=== PATIENT | male | born 1940 | race Caucasian/White ===

== ENCOUNTER 2017-11-23 16:19 | Inpatient (IN) | payer OTHER ==
[~2017-11-23] VITALS: Ht 182.9 cm; Wt 83.5 kg
--- NOTE | 2017-11-23 16:37 | NUR ---
BBRA 78 FROM HOME FOR SOB LOW 90'S ON ROOM AIR HX CHF. 100% ON 5L . PLACED ON MONITOR. AWAITING MD ORDER
[2017-11-23] MEDS ORDERED: FUROSEMIDE 40 MG/4 ML VIAL ONE ×2 (16:39→18:41)
[2017-11-23 16:51] LABS: BASOPHILS # (AUTO) 0.4 /CMM (0.0-0.2); HEMOGLOBIN 10.4 g/dL (13.5-17.5); NEUTROPHILS % (AUTO) 89.5 % (43.0-81.0); RED BLOOD CELL COUNT(AUTO) 3.23 MIL/uL (4.5-6.0)
[2017-11-23] MEDS ORDERED: BECL8.7A6 IH (16:59)
[2017-11-23] MEDS ORDERED: DOCU-141 PO (16:59)
[2017-11-23] MEDS ORDERED: HYDR-552 PO (16:59)
[2017-11-23] MEDS ORDERED: LOSA50TA21 PO (16:59)
[2017-11-23] MEDS ORDERED: ASPI-992 PO (16:59)
[2017-11-23] MEDS ORDERED: ATOR10TA PO (16:59)
[2017-11-23] MEDS ORDERED: ALBU18HF2 IH (16:59)
[2017-11-23] MEDS ORDERED: MULT-24 PO (16:59)
[2017-11-23] MEDS ORDERED: CYAN10009 PO (16:59)
[2017-11-23] MEDS ORDERED: ESCI10TA PO (16:59)
[2017-11-23] MEDS ORDERED: ALLO300T2 PO (16:59)
[2017-11-23] MEDS ORDERED: BUPR-51 PO (16:59)
[2017-11-23] MEDS ORDERED: NITR0.4T48 SL (16:59)
[2017-11-23] MEDS ORDERED: ACAM333T8 PO (16:59)
[2017-11-23] MEDS ORDERED: METO25TA20 PO (16:59)
[2017-11-23] MEDS ORDERED: SENN-167 PO (16:59)
[2017-11-23] MEDS ORDERED: CHOL100044 PO (16:59)
[2017-11-23] MEDS ORDERED: FOLI1TAB16 PO (16:59)
[2017-11-23] MEDS ORDERED: MELA3TAB PO (16:59)
[2017-11-23] MEDS ORDERED: MAGN400T26 PO (16:59)
[2017-11-23] MEDS ORDERED: THIA100T13 PO (16:59)
[2017-11-23] MEDS ORDERED: FUROSEMIDE 40 MG/4 ML VIAL IV ONE ×2 (17:00→19:00)
[2017-11-23 17:03] LABS: BASOPHILS % (AUTO) 2.8 % (0.0-2.0); HEMATOCRIT 31 % (39-51); LYMPHOCYTES # (AUTO) 0.6 /CMM (0.8-4.8); MEAN CORPUSCULAR HGB CONC 34 g/dl (31.0-36.0); MEAN CORPUSCULAR VOLUME 96 fL (80-96); MONOCYTES # (AUTO) 0.6 /CMM (0.1-1.30); MONOCYTES % (AUTO) 3.7 % (2.0-12.0); NEUTROPHILS # (AUTO) 14.2 /CMM (1.8-8.9); PLATELET COUNT (AUTO) 459 /CMM (150-450); RDW COEFFICIENT OF VARIATION 13.2 (11.5-15.0); WHITE BLOOD COUNT (AUTO) 15.9 K/uL (4.3-11.0)
[2017-11-23 17:04] LABS: CALCIUM, SERUM 10.2 mg/dL (8.5-10.1); CARBON DIOXIDE 27 mmol/L (21-32); CHLORIDE 100 mmol/L (98-107); CREATININE 1.5 mg/dL (0.6-1.3); GLUCOSE 133 mg/dL (74-106); POTASSIUM 4.1 mmol/L (3.5-5.1); SODIUM SERUM 134 mmol/L (136-145); UREA NITROGEN, BLOOD 46 mg/dL (7-18)
[2017-11-23 17:10] LABS: INR 1.14 (0.85-1.15)
[2017-11-23 17:11] LABS: TROPONIN I 0.029 ng/mL (0.00-0.056)
[2017-11-23 17:16] LABS: ALANINE AMINOTRANSFERASE 30 U/L (12-78); ALBUMIN 2.1 g/dL (3.4-5.0); ALKALINE PHOSPHATASE 162 U/L (46-116); ASPARTATE AMINOTRANSFERASE 22 U/L (15-37); B-TYPE NATRIURETIC PEPTIDE 6682 PG/ML (0-125); BILIRUBIN,DIRECT 0.4 mg/dL (0.0-0.2); BILIRUBIN,TOTAL 0.7 mg/dL (0.2-1.0)
--- NOTE | 2017-11-23 17:45 | NUR ---
CALLED [facility] SPOKE WITH BERNA, EXPECTING A CALL BACK FROM A FRAZEE
--- NOTE | 2017-11-23 18:27 | NUR ---
UNABLE TO OBTAIN URINE AT THIS TIME MD JAVED
--- NOTE | 2017-11-23 18:33 | NUR ---
[facility] CALLED BACK WITH [place] INFO PATIENT WILL BE TRANFERED TO [facility] ER ACCEPTING IS DR ADITYA HERNÁNDEZ ETA [id number].
--- NOTE | 2017-11-23 18:57 | NUR ---
GAVE REPORT TO AURELIO TO RODY MARINO
--- NOTE | 2017-11-23 19:08 | NUR ---
GAVE REPORT TO [facility] FOR HEATHER
--- NOTE | 2017-11-23 19:09 | NUR ---
RECEIVED REPORT FROM ADAMARIS DOWNING FOR HEATHER.
--- NOTE | 2017-11-23 19:15 | NUR ---
PT NOTED TO BE IN MILD RESPIRATORY DISTRESS. PT ON SIMPLE MASK 5L/M WITH SPO2 100%, RR 26. MD MADE AWARE. WILL CONTINUE TO MONITOR PT.
[2017-11-23] MEDS ORDERED: NALOXONE PREFILLED SYRINGE 2 MG/2 ML SYRINGE ONE (19:23)
--- NOTE | 2017-11-23 19:25 | NUR ---
REPORT GIVEN TO TRANSPORT TEAM BY ADAMARIS DOWNING.
--- NOTE | 2017-11-23 19:27 | NUR ---
PT MEDICATED WITH NARCAN IV PER MD'S VERBAL ORDERS. WILL CONTINUE TO MONITOR PT. TRANSPORT TEAM BEDSIDE TO TRANSFER PT TO [facility].
[2017-11-23] MEDS ORDERED: NALOXONE HCL 0.4 MG/ML AMPUL IV ONE (19:30)
--- NOTE | 2017-11-23 19:45 | NUR ---
TRANSPORT TEAM ON STANDBY UNTIL FURTHER NOTICE PER MD MICHAUD. CALLING MARINO FOR DR TO WILL CONTINUE TO MONITOR PT.
--- NOTE | 2017-11-23 19:50 | NUR ---
PT TO CT
--- NOTE | 2017-11-23 20:02 | NUR ---
RT CALLED FOR BIPAP
--- NOTE | 2017-11-23 20:03 | NUR ---
PT BACK FROM CT
[2017-11-23 20:19] VITALS: BP 125/71
--- NOTE | 2017-11-23 20:36 | NUR ---
BIPAP SETTINGS 20/5 18/100%
--- NOTE | 2017-11-23 20:40 | NUR ---
REPORT GIVEN TO MILL WORKERADAMARIS MUÑOZ FOR HEATHER.
--- NOTE | 2017-11-23 20:50 | NUR ---
RT BEDSIDE FOR ABG
--- NOTE | 2017-11-23 21:05 | NUR ---
RN ADMITTING NOTE RECEIVED PT FROM ER, REPORT GIVEN BY ER NURSE. 76 YR OLD MALE WITH AMS, CC; SOB LOW 90'S, AMS. PLACED ON BIPAP 20/5 18, 35%, NO SIGN OF FACIAL GRIMANCING, ABLE TO RESPOND AFTER LOUD CALL OUT OF HIS NAME, NON VERBAL, CALM, VS WNR, RESPIRATORY DOS SANTOS WITH AUDIBLE CRACKLES. WITH RH # 20 G, SL, SKIN ISSUES NOTED PHOTOS TAKEN, PT WAS FOR TRANSFER TO [facility] PER ER NURSE DOCTOR TO DOCTOR CONVERSATION, BUT PT UNSTABLE, SO DECIDED TO KEEP OVER NIGHT FOR OBSERVATION AND F/U IN AM. MARYJANE ADMITTING MEMBERSHIP SECRETARY, ALL ORDERS INPUT PER PROTOCOL. SAFETY MEASURES UNDER TAKEN, WILL CONT TO MONITOR.
[2017-11-23 21:17] VITALS: BP 122/90
[2017-11-23 21:25] LABS: ABG BASE EXCESS -0.5 mmol/L; ABG OXYGEN SATURATION 99.4 % (92.0-98.5); ABG PCO2 54.4 mmHg (35.0-45.0); ABG PH 7.304 (7.350-7.450); ABG PO2 458.8 mmHg (75.0-100.0); AaDO2 199.8 mmHg; COHb 0.1 % (0.5-1.5); MetHb 0.5 % (0.0-1.5); O2Hb 98.8 % (94.0-97.0); PEEP,BG 5 cm H2O; SITE, ABG Right Radial; VENT MODE, BG bipap
[2017-11-23 21:30] VITALS: BP 129/90
[2017-11-23 22:01] VITALS: BP 139/31
--- NOTE | 2017-11-23 22:30 | NUR ---
PT SEEN BY MARYJANE TRIM AND BURR OPERATOR WITH ORDERS FOR ALBUTEROL, ATROVENT, MUCOMIST, NASAL OR ORAL SUCTION D/T CONGESTION/ CRACKLES AND 1 HR AFTER ABG.
[2017-11-23 23:20] VITALS: BP 104/60
[2017-11-23] MEDS: ALBUTEROL FS 2.5 MG/0.5 ML VIAL.NEB NEB SCH (23:20)
[2017-11-23] MEDS: IPRATROPIUM NEB FS 0.5 MG/2.5 ML AMPUL.NEB NEB SCH (23:20)
[2017-11-23] MEDS: ACETYLCYSTEINE 10% SOLN 400 MG/4 ML VIAL NEB SCH (23:20)
[2017-11-23] MEDS ORDERED: MAG HYDROX/AL HYDROX/SIMETH 30 ML UDC PO PRN (23:30)
[2017-11-23] MEDS ORDERED: Z GUARD REMEDY 2 OZ OINT TP PRN (23:30)
[2017-11-23] MEDS ORDERED: ONDANSETRON HCL/PF 4 MG/2 ML VIAL IVP PRN (23:30)
[2017-11-23] MEDS ORDERED: ZOLPIDEM TARTRATE 5 MG TABLET PO PRN (23:30)
[2017-11-23] MEDS ORDERED: MAGNESIUM HYDROXIDE 30 ML UDC PO PRN (23:30)
[2017-11-23] MEDS ORDERED: ACETAMINOPHEN 325 MG TABLET PO PRN (23:30)
[2017-11-23] MEDS ORDERED: HYDROCODONE/APAP 5/325MG 1 EACH TABLET PO PRN (23:30)
[2017-11-24] VITALS (41 sets, daily range): BP systolic 94–131; BP diastolic 29–84
[2017-11-24] MEDS: HEPARIN SODIUM, PORCINE 5000 UNITS/1 ML VIAL SQ SCH ×2 (00:08→09:26)
[2017-11-24 01:29] LABS: ABG BASE EXCESS 1.7 mmol/L; ABG PCO2 43.2 mmHg (35.0-45.0); ABG PH 7.408 (7.350-7.450); ABG PO2 93.4 mmHg (75.0-100.0); AaDO2 105.9 mmHg; COHb 0.3 % (0.5-1.5); MetHb 0.3 % (0.0-1.5); O2Hb 96.4 % (94.0-97.0); SITE, ABG Right Radial; VENT MODE, BG BIPAP 22/5 RR18 35%
[2017-11-24] MEDS ORDERED: CEFTRIAXONE 1 G in IV D5W 50 ML IV SCH (03:00)
[2017-11-24] MEDS ORDERED: IV NS 0.9% 1,000 ML IV PRN (03:00)
[2017-11-24 03:18] LABS: BASOPHILS % (AUTO) 0.1 % (0.0-2.0); HEMATOCRIT 29 % (39-51); HEMOGLOBIN 9.5 g/dL (13.5-17.5); LYMPHOCYTES # (AUTO) 0.7 /CMM (0.8-4.8); LYMPHOCYTES % (AUTO) 6.3 % (20.0-44.0); MEAN CORPUSCULAR HGB CONC 33 g/dl (31.0-36.0); MEAN CORPUSCULAR VOLUME 96 fL (80-96); MONOCYTES # (AUTO) 0.4 /CMM (0.1-1.30); MONOCYTES % (AUTO) 3.8 % (2.0-12.0); NEUTROPHILS # (AUTO) 10.2 /CMM (1.8-8.9); NEUTROPHILS % (AUTO) 89.8 % (43.0-81.0); PLATELET COUNT (AUTO) 372 /CMM (150-450); RED BLOOD CELL COUNT(AUTO) 2.96 MIL/uL (4.5-6.0); WHITE BLOOD COUNT (AUTO) 11.3 K/uL (4.3-11.0)
[2017-11-24 03:35] LABS: CALCIUM, SERUM 9.9 mg/dL (8.5-10.1); CARBON DIOXIDE 27 mmol/L (21-32); CHLORIDE 103 mmol/L (98-107); CREATININE 1.8 mg/dL (0.6-1.3); GLUCOSE 125 mg/dL (74-106); MAGNESIUM 2.1 mg/dL (1.8-2.4); POTASSIUM 4.2 mmol/L (3.5-5.1); SODIUM SERUM 140 mmol/L (136-145); UREA NITROGEN, BLOOD 55 mg/dL (7-18)
[2017-11-24 03:37] LABS: CHOLESTEROL 77 mg/dL (<200); HDL CHOLESTEROL 34 mg/dL (40-60); LDL 44 mg/dL (0-99); TRIGLYCERIDES 54 mg/dL (30-150)
[2017-11-24] MEDS: IPRATROPIUM NEB FS 0.5 MG/2.5 ML AMPUL.NEB NEB SCH ×5 (03:37→19:34)
[2017-11-24] MEDS: ALBUTEROL FS 2.5 MG/0.5 ML VIAL.NEB NEB SCH ×5 (03:37→19:34)
[2017-11-24 03:39] LABS: TROPONIN I 0.031 ng/mL (0.00-0.056)
[2017-11-24] MEDS ORDERED: CEFTRIAXONE 1 G VIAL ONE (04:07)
[2017-11-24] MEDS ORDERED: METRONIDAZOLE 500MG/ NS 100ML 100 ML IV ONE (04:08)
[2017-11-24] MEDS ORDERED: IV NS 0.9% 250 ML IV PRN (04:30)
[2017-11-24] MEDS: METRONIDAZOLE 500MG/ NS 100ML 500 MG in PREMIX 1 EA IV SCH ×3 (05:05→17:56)
--- NOTE | 2017-11-24 06:17 | NUR ---
IRON PILER CLOSING NOTE ENDORSED PT TO AM SHIFT NURSE, CONT BIPAP, WELL [place], VS WNR, ALL NEEDS MET. PT MORE AWAKE NOW AND ORIENTED X2, ABLE TO VERBALIZE, THOUGH NOT VERY CLEAR, PLAN IS TO TRANSFER TO [facility] WHEN STABLE IN AM, PER S3B MULTI SENSOR OPERATOR WHO GAVE REPORT AND . WILL ENDORSE TO AM SHIFT NURSE TO F/U.
[2017-11-24] MEDS: ACETYLCYSTEINE 10% SOLN 400 MG/4 ML VIAL NEB SCH ×2 (07:43→15:06)
--- NOTE | 2017-11-24 08:30 | NUR ---
RN NOTE: PATIENT RECEIVED ALERT, AWAKE ORIENTED X1. VERBALLY RESPONSIVE TO SIMPLE COMMANDS. ON BIPAP, SETTINGS TOLERATING WELL. HOB ELEVATED. NPO STATUS. SEEN BY DR. OSIRIS VIVAS, DR. PARKS , DR. STRICKLAND AT BEDSIDE. SAFETY MEASURES OBSERVED. CONTINUE WITH TREATMENT ORDERED. WILL CONTINUE TO MONITOR. PLAN TO TRANSFER TO [facility] DUE TO INSURANCE REQUEST.
[2017-11-24] MEDS: DOCUSATE SODIUM 100 MG CAPSULE PO SCH ×2 (08:33→16:47)
[2017-11-24] MEDS: METOPROLOL TARTRATE 25 MG TABLET PO SCH ×2 (08:34→16:47)
[2017-11-24] MEDS: MAGNESIUM OXIDE 400 MG TABLET PO SCH ×2 (08:34→16:48)
[2017-11-24] MEDS ORDERED: FOLIC ACID 1 MG TABLET PO SCH (09:00)
[2017-11-24] MEDS ORDERED: MULTIVITAMINS,THERAGRAN 1 UDTAB TABLET PO SCH (09:00)
[2017-11-24] MEDS ORDERED: BUMETANIDE INJ 4 MG in IV NS 0.9% 24 ML IV ONE (09:00)
[2017-11-24] MEDS ORDERED: BUPROPION XL 150 MG TAB.ER.24 PO SCH (09:00)
[2017-11-24] MEDS ORDERED: BUMETANIDE INJ 0.25 MG/ML VIAL IV ONE (09:00)
[2017-11-24] MEDS ORDERED: ESCITALOPRAM OXALATE (10 MG) 10 MG TABLET PO SCH (09:00)
[2017-11-24] MEDS ORDERED: CHOLECALCIFEROL 1,000 UNIT TABLET (VIT D3) PO SCH (09:00)
[2017-11-24] MEDS ORDERED: THIAMINE HCL 100 MG TABLET PO SCH (09:00)
[2017-11-24] MEDS ORDERED: CYANOCOBALAMIN 500 MCG TABLET PO SCH (09:00)
[2017-11-24] MEDS ORDERED: ALLOPURINOL 100 MG TABLET PO SCH (09:00)
[2017-11-24] MEDS ORDERED: LOSARTAN POTASSIUM 50 MG TABLET PO SCH (09:00)
[2017-11-24] MEDS ORDERED: ASPIRIN 325 MG TABLET PO SCH (09:00)
--- NOTE | 2017-11-24 09:07 | NUR ---
WOUND CARE CONSULT: PT REFUSED TO BE TURNED FOR FULL SKIN ASSESSMENT. LIMITED ASSESSMENT TODAY DUE TO PT REFUSAL. LEFT SHOULDER CLOSED INCISION NOTED WITH STERI STRIPS, LEFT SIDE OF FACE ABOVE LEFT EYE STERI STRIPS NOTED, RT FOOT HAS DRY SCABS AND BROWN DEEP TISSUE INJURY TO MEDIAL FOOT (INTACT), ALL PRESENT ON ADMISSION. CURRENT [place] SCORE IS 12. FIRST STEP MATTRESS ORDERED. WILL SEE [facility] IN AGREEMENT WITH PLAN OF CARE. Addendum: 11/24/17 at 0910 by REJI JOYCE WNDNU Amended: Links added.
--- NOTE | 2017-11-24 12:00 | NUR ---
RN NOTE: TRANSFER TO 1ST STEP MATTRESS, CONTINUE TO TURN & REPOSITION Q2H, OFFLOADING PRESSURE POINTS.
--- NOTE | 2017-11-24 12:30 | NUR ---
RN NOTE: AT BEDSIDE.
[2017-11-24] MEDS ORDERED: ACET1OOV6 NEB (14:20)
[2017-11-24] MEDS ORDERED: IPRA0.2S9 NEB (14:20)
[2017-11-24] MEDS ORDERED: ALBU2.5V13 NEB (14:20)
[2017-11-24] MEDS ORDERED: HEPA50008 SQ (14:20)
[2017-11-24] MEDS ORDERED: methylPREDNISolone SOD SUCC 125 MG/2ML VIAL IV SCH (15:00)
[2017-11-24] MEDS ORDERED: ATORVASTATIN 10 MG TABLET PO SCH (18:00)
--- NOTE | 2017-11-24 19:12 | NUR ---
RN NOTE: PATIENT REMAINS ALERT AWAKE ORIENTED X1-2, ABLE TO VERBALIZE SIMPLE WORDS. DENIES PAIN/DISCOMFORT. CONTINUE WITH BIPAP, SETTINGS TOLERATING WELL. VERBALIZE BREATHING BETTER. IN AM TRIED TO TITRATE TO NASAL CANNULA, DID NOT TOLERATED. DR. STRICKLAND IS AWARE. SAFETY MEASURES OBSERVED. WILL CONTINUE TO MONITOR,. PLAN TO TRANSFER TO [facility] DUE TO INSURANCE REQUEST. REPORT GIVEN TO KEITH BAILON, DENTURE TECHNICIAN TIME IS 1929. SKIN PICTURE TAKEN & PLACED IN THE CHART. REFUSED TO TAKE PICTURE FROM [place] AREA. INTACT, NO SKIN BREAKDOWN NOTED. FELIX IS AWARE.
--- NOTE | 2017-11-24 19:15 | NUR ---
RN NOTE: REPORT GIVEN TO NIGHT RN FOR CONTINUITY OF CARE, WAITING FOR AMBULANCE TO [facility].
--- NOTE | 2017-11-24 20:06 | NUR ---
RN NOTES RECEIVED PATIENT IN BED SLEEPING WITH NO RESPIRATORY DISTRESS OR SHORTNESS OF BREATH. NO PHYSICAL MANIFESTATION OF PAIN OR DISCOMFORT. BIPAP SETTING TOLERATING WELL. LAC PIV LINE IN PLACE, INTACT NO SIGN OF INFILTRATION. VITAL SIGNS WNL. PICKED UP BY AMBULANCE WITH 3 FINANCIAL COMPLIANCE EXAMINER FOR TRANSFER TO [facility] AT ABOUT 2000 IN STABLE CONDITION.
[2017-11-24] MEDS ORDERED: SENNOSIDES 8.6 MG TABLET PO SCH (22:00)
== END 2017-11-24 20:24 | disposition short-term general hospital (02) | DRG 189 ==
LOC: ER 16:22 → ICU 20:49
PROVIDERS: ADMIT Nurse Practitioner Acute Care; ATTEND Nurse Practitioner Acute Care
PROC: 5A09357 Assistance with Respiratory Ventilation, Less than 24 Consecutive Hours, Continuous Positive Airway Pressure (ICD-10-PCS; principal; 2017-11-23)
DX: J96.02 Acute respiratory failure with hypercapnia (principal); J69.0 Pneumonitis due to inhalation of food and vomit; N17.0 Acute kidney failure with tubular necrosis; G92 Toxic encephalopathy; I50.33 Acute on chronic diastolic (congestive) heart failure; E44.0 Moderate protein-calorie malnutrition; E87.1 Hypo-osmolality and hyponatremia; J44.0 Chronic obstructive pulmonary disease with (acute) lower respiratory infection; I13.0 Hypertensive heart and chronic kidney disease with heart failure and stage 1 through stage 4 chronic kidney disease, or unspecified chronic kidney disease; J44.1 Chronic obstructive pulmonary disease with (acute) exacerbation; I48.2 Chronic atrial fibrillation; I27.20 Pulmonary hypertension, unspecified; J96.22 Acute and chronic respiratory failure with hypercapnia; D63.8 Anemia in other chronic diseases classified elsewhere; D72.829 Elevated white blood cell count, unspecified; N18.9 Chronic kidney disease, unspecified; E66.9 Obesity, unspecified; Z68.25 Body mass index [BMI] 25.0-25.9, adult; J20.9 Acute bronchitis, unspecified; F43.9 Reaction to severe stress, unspecified; Z87.891 Personal history of nicotine dependence
CPT/HCPCS: 31720; 36415; 36600; 70450-TC; 71045-TC; 80048-TC; 80061-TC; 80076-TC; 82803-TC; 83605-TC; 83735-TC; 83880; 84100-TC; 84484-TC; 85025-TC; 85730-TC; 93307-TC; 94760-TC; A4216; A4606; A4624; J0696; J1644; J1940; J2310; J2930; J3490; J7030; J7050; J7060; Z7610

== ENCOUNTER 2019-05-14 18:39 | Emergency (ER) | payer OTHER ==
[~2019-05-14] VITALS: Ht 182.9 cm; Wt 85.3 kg
[~2019-05-14 18:39] MED LIST: ACAM333T8 PO; ACET1OOV6 NEB; ALBU2.5V13 NEB; ALLO300T2 PO; ASPI-992 PO; ATOR10TA PO; BECL8.7A6 IH; BUPR-51 PO; CHOL100044 PO; CYAN-51 PO; DOCU-141 PO; ESCI10TA PO; FOLI1TAB16 PO; HEPA50008 SQ; HYDR-4384 PO; IPRA0.2S9 NEB; LOSA50TA39 PO; MAGN400T26 PO; MELA3TAB63 PO; METO25TA20 PO; MULT-24 PO; NITR0.4T48 SL; SENN-168 PO; THIA100T13 PO
--- NOTE | 2019-05-14 18:50 | NUR ---
BIB RA 878 FROM [facility]. PATIENT A/OX3, BREATHING EVEN AND UNLABROED, NO SOB NOTED, AT BEDSIDE. CHANGED INTO GOWN, ATTACHED TO THE LOAN INTERVIEWER MORTGAGE. NO DISTRESS NOTED.
[2019-05-14] MEDS ORDERED: IV NS 0.9% 1,000 ML BAG IV ONE (19:00)
--- NOTE | 2019-05-14 19:05 | NUR ---
BLOOD DRAWN AND SENT TO LAB.
--- NOTE | 2019-05-14 19:14 | NUR ---
URINAL PROVIDED FOR A URINE SAMPLE.
[2019-05-14 19:15] LABS: BASOPHILS % (AUTO) 0.5 % (0.0-2.0); HEMATOCRIT 36 % (39-51); HEMOGLOBIN 12.1 g/dL (13.5-17.5); LYMPHOCYTES # (AUTO) 0.8 /CMM (0.8-4.8); LYMPHOCYTES % (AUTO) 8.7 % (20.0-44.0); MEAN CORPUSCULAR HGB CONC 33 g/dl (31.0-36.0); MEAN CORPUSCULAR VOLUME 99 fL (80-96); MONOCYTES # (AUTO) 0.9 /CMM (0.1-1.30); MONOCYTES % (AUTO) 9.5 % (2.0-12.0); NEUTROPHILS # (AUTO) 7.1 /CMM (1.8-8.9); NEUTROPHILS % (AUTO) 78.3 % (43.0-81.0); PLATELET COUNT (AUTO) 151 /CMM (150-450); RED BLOOD CELL COUNT(AUTO) 3.67 MIL/uL (4.5-6.0); WHITE BLOOD COUNT (AUTO) 9.1 K/uL (4.3-11.0)
--- NOTE | 2019-05-14 19:30 | NUR ---
ENDORSED TO JOHN BAILON FOR HEATHER.
[2019-05-14 19:32] LABS: CALCIUM, SERUM 9.7 mg/dL (8.5-10.1); CARBON DIOXIDE 25 mmol/L (21-32); CHLORIDE 105 mmol/L (98-107); CREATININE 1.2 mg/dL (0.6-1.3); GLUCOSE 138 mg/dL (74-106); POTASSIUM 4.7 mmol/L (3.5-5.1); SODIUM SERUM 136 mmol/L (136-145); UREA NITROGEN, BLOOD 35 mg/dL (7-18)
[2019-05-14 19:38] LABS: ALANINE AMINOTRANSFERASE 14 U/L (12-78); ALBUMIN 3.1 g/dL (3.4-5.0); ALKALINE PHOSPHATASE 111 U/L (46-116); ASPARTATE AMINOTRANSFERASE 11 U/L (15-37); BILIRUBIN,DIRECT 0.1 mg/dL (0.0-0.2); BILIRUBIN,TOTAL 0.4 mg/dL (0.2-1.0)
--- NOTE | 2019-05-14 20:05 | NUR ---
[facility] PAGED. AWAITING RESPONSE
[2019-05-14] MEDS ORDERED: CEFTRIAXONE 1GM BAG (ER ONLY) 50 ML IV ONE ×2 (20:30→20:41)
[2019-05-14] MEDS ORDERED: AZITHROMYCIN 500 MG in IV D5W 250 ML IV ONE (20:30)
[2019-05-14] MEDS ORDERED: AZITHROMYCIN 500 MG VIAL ONE (20:41)
[2019-05-14 21:00] VITALS: BP 106/62
--- NOTE | 2019-05-14 21:15 | NUR ---
PATIENT ACCEPTED TO [facility]. [phone] NUMBER FOR REPORT ER. ACCEPTING MD DR WALTER. [facility] TRANSPORT [id number]
--- NOTE | 2019-05-14 21:32 | NUR ---
REPORT GIVEN TO [facility].
--- NOTE | 2019-05-14 21:35 | NUR ---
REPORT GIVEN TO party plan selling distributor FROM [facility]
--- NOTE | 2019-05-14 22:12 | NUR ---
PT WAS PICKED UP BY [facility] VIA GURNEY AND TRANSFERRED TO [facility] UNDER ACLS
== END 2019-05-14 22:16 | disposition short-term general hospital (02) ==
LOC: ER 18:40
DX: J18.9 Pneumonia, unspecified organism (principal); I11.0 Hypertensive heart disease with heart failure; I50.9 Heart failure, unspecified; I48.91 Unspecified atrial fibrillation; J44.9 Chronic obstructive pulmonary disease, unspecified; M10.9 Gout, unspecified; Z98.890 Other specified postprocedural states; Z79.899 Other long term (current) drug therapy; Z79.01 Long term (current) use of anticoagulants; Z79.82 Long term (current) use of aspirin
CPT/HCPCS: 36415; 71045; 80048; 80076; 83605; 84145; 84484; 85025; 85730; 87040 ×2; 87804 ×2; 93005; 96365; 96367; 99285; J0456; J0696; J7030; J7060

== ENCOUNTER 2021-02-24 17:35 | Emergency (ER) | payer OTHER ==
[~2021-02-24] VITALS: Ht 182.9 cm; Wt 97.5 kg
[~2021-02-24 17:35] MED LIST changes: -BUPR-51 PO; +BUPR-53 PO; +MELA3TAB41 PO; -MELA3TAB63 PO; -SENN-168 PO; +SENN-261 PO
--- NOTE | 2021-02-24 17:58 | NUR ---
CALLED [facility] [phone]
--- NOTE | 2021-02-24 18:08 | NUR ---
BIB RA 88 FROM [place],C/O SHORTNESS OF BREATH,PATIENT ALERT AND ORIENTED X3. RECIEVING O2 VIA NC AT 2L/MIN AND DENIES ANY PAIN. PATIENT IS ATTACHED TO MONITOR AND WILL CONTINUE TO MONITOR.
--- NOTE | 2021-02-24 18:14 | NUR ---
DR. HILLIARD SPEAKING WITH DR. MOYA.
--- NOTE | 2021-02-24 18:22 | NUR ---
COVID SWAB DONE AND SENT TO LAB, VP CUSTOMER DEVELOPMENT AT BEDSIDE.
[2021-02-24 18:24] LABS: HEMOGLOBIN 12.4 g/dL (13.5-17.5); LYMPHOCYTES % (AUTO) 15.1 % (20.0-44.0); NEUTROPHILS # (AUTO) 6.4 K/uL (1.8-8.9); WHITE BLOOD COUNT (AUTO) 8.9 K/uL (4.3-11.0)
[2021-02-24 18:26] LABS: BASOPHILS % (AUTO) 0.5 % (0.0-2.0); EOSINOPHILS % (AUTO) 2.5 % (0.0-6.0); HEMATOCRIT 38 % (39-51); LYMPHOCYTES # (AUTO) 1.4 K/uL (0.8-4.8); MEAN CORPUSCULAR HGB CONC 33 g/dl (31.0-36.0); MEAN CORPUSCULAR VOLUME 105 fL (80-96); MONOCYTES # (AUTO) 0.9 K/uL (0.1-1.30); MONOCYTES % (AUTO) 10.5 % (2.0-12.0); NEUTROPHILS % (AUTO) 71.4 % (43.0-81.0); PLATELET COUNT (AUTO) 196 K/uL (150-450); RED BLOOD CELL COUNT(AUTO) 3.61 MIL/uL (4.5-6.0)
[2021-02-24] MEDS ORDERED: ALBUTEROL FS 2.5 MG/3 ML VIAL.NEB NEB ONE ×2 (18:30→21:00)
[2021-02-24] MEDS ORDERED: IPRATROPIUM NEB FS 0.5 MG/2.5 ML AMPUL.NEB NEB ONE (18:30)
[2021-02-24 18:31] LABS: CALCIUM, SERUM 9.8 mg/dL (8.5-10.1); CARBON DIOXIDE 28 mmol/L (21-32); CHLORIDE 105 mmol/L (98-107); CREATININE 1.1 mg/dL (0.6-1.3); GLUCOSE 122 mg/dL (74-106); POTASSIUM 4.7 mmol/L (3.5-5.1); SODIUM SERUM 141 mmol/L (136-145); UREA NITROGEN, BLOOD 25 mg/dL (7-18)
[2021-02-24 18:42] LABS: ALANINE AMINOTRANSFERASE 20 U/L (12-78); ALKALINE PHOSPHATASE 104 U/L (46-116); ASPARTATE AMINOTRANSFERASE 19 U/L (15-37); BILIRUBIN,DIRECT 0.1 mg/dL (0.0-0.2); BILIRUBIN,TOTAL 0.3 mg/dL (0.2-1.0); TOTAL PROTEIN, SERUM 7.3 g/dL (6.4-8.2)
[2021-02-24] MEDS ORDERED: IPRATROPIUM NEB FS 0.5 MG/2.5 ML AMPUL.NEB ONE (18:45)
[2021-02-24] MEDS ORDERED: ALBUTEROL FS 2.5 MG/3 ML VIAL.NEB ONE ×2 (18:45→21:20)
--- NOTE | 2021-02-24 19:56 | NUR ---
[facility] PAGED PER DR MOYA.
[2021-02-24 20:14] VITALS: BP 117/59
[2021-02-24] MEDS ORDERED: VANCOMYCIN 1 GM in IV D5W 250 ML IV ONE (21:00)
[2021-02-24] MEDS ORDERED: methylPREDNISolone SOD SUCC 125 MG/2ML VIAL IV ONE (21:00)
[2021-02-24] MEDS ORDERED: CEFEPIME 1 GM in IV D5W 50 ML IV ONE (21:00)
[2021-02-24] MEDS ORDERED: CEFEPIME 1 GM VIAL ONE (21:21)
[2021-02-24] MEDS ORDERED: methylPREDNISolone SOD SUCC 125 MG/2ML VIAL ONE (21:22)
[2021-02-24] MEDS ORDERED: VANCOMYCIN 1 GM VIAL ONE (21:22)
--- NOTE | 2021-02-24 21:42 | NUR ---
CALL FROM [facility] . PT ACCEPTED TO [facility] BY DR SALGUERO. ROOM [id number]. # FOR REPORT [phone]. [facility] ETA [id number]
--- NOTE | 2021-02-24 21:51 | NUR ---
CALLED PT'S AND UPDATED HER REGARDING PT'S TRANSFER
--- NOTE | 2021-02-24 22:14 | NUR ---
REPORT GIVEN TO HUGO RN FOR HEATHER
--- NOTE | 2021-02-24 23:26 | NUR ---
REPORT GIVEN TO EMT, [facility]
== END 2021-02-24 23:43 | disposition short-term general hospital (02) ==
LOC: ER 17:42
DX: J44.0 Chronic obstructive pulmonary disease with (acute) lower respiratory infection (principal); J18.9 Pneumonia, unspecified organism; J44.1 Chronic obstructive pulmonary disease with (acute) exacerbation; J96.91 Respiratory failure, unspecified with hypoxia; Z20.822 Contact with and (suspected) exposure to COVID-19; M10.9 Gout, unspecified; R73.9 Hyperglycemia, unspecified; Z79.82 Long term (current) use of aspirin; I11.0 Hypertensive heart disease with heart failure; I50.9 Heart failure, unspecified; Z79.899 Other long term (current) drug therapy
CPT/HCPCS: 36415; 71045; 80048; 80076; 84484; 85025; 87040 ×2; 87426; 93005; 94640 ×2; 96365; 96368; 96375; 99285; C9803; J0692 ×2; J2930; J3370; J7060 ×2

== ENCOUNTER 2021-09-27 11:10 | Emergency (ER) | payer OTHER ==
[~2021-09-27] VITALS: Ht 188 cm; Wt 97.5 kg
[2021-09-27] MEDS ORDERED: MULT-1168 PO (11:48)
[2021-09-27] MEDS ORDERED: TIOT18CA3 IH (11:49)
[2021-09-27] MEDS ORDERED: CICL6.1H2 IH (11:49)
[2021-09-27] MEDS ORDERED: METO25TA20 PO (11:49)
[2021-09-27] MEDS ORDERED: ACET-868 PO (11:49)
[2021-09-27] MEDS ORDERED: DABI150C PO (11:49)
[2021-09-27] MEDS ORDERED: LACT1CAP71 PO (11:49)
[2021-09-27] MEDS ORDERED: GABA-532 PO (11:49)
[2021-09-27] MEDS ORDERED: ALBU18HF2 IH (11:49)
--- NOTE | 2021-09-27 11:50 | NUR ---
MARISOL RA 860 FROM [facility]ED [facility]AK[facility]. AWAKE NOT IN DISTRESS, FOLLOWS COMMAND. SEEN BY
--- NOTE | 2021-09-27 11:57 | NUR ---
CURAM DEVELOPER AT BEDSIDE
[2021-09-27] MEDS ORDERED: IV NS 0.9% 500 ML BAG IV ONE (12:00)
--- NOTE | 2021-09-27 12:01 | NUR ---
IVF R AC G22, BLOOD DRAWN FOR INVESTIGATION.
[2021-09-27 12:10] LABS: BASOPHILS % (AUTO) 0.4 % (0.0-2.0); EOSINOPHILS % (AUTO) 1.5 % (0.0-6.0); HEMATOCRIT 35 % (39-51); HEMOGLOBIN 11.1 g/dL (13.5-17.5); LYMPHOCYTES # (AUTO) 0.9 K/uL (0.8-4.8); LYMPHOCYTES % (AUTO) 9.5 % (20.0-44.0); MEAN CORPUSCULAR HGB CONC 32 g/dl (31.0-36.0); MEAN CORPUSCULAR VOLUME 101 fL (80-96); MONOCYTES # (AUTO) 0.8 K/uL (0.1-1.30); MONOCYTES % (AUTO) 8.4 % (2.0-12.0); NEUTROPHILS % (AUTO) 80.2 % (43.0-81.0); PLATELET COUNT (AUTO) 223 K/uL (150-450); RED BLOOD CELL COUNT(AUTO) 3.46 MIL/uL (4.5-6.0); WHITE BLOOD COUNT (AUTO) 9.9 K/uL (4.3-11.0)
[2021-09-27 12:24] LABS: CALCIUM, SERUM 9.6 mg/dL (8.5-10.1); CARBON DIOXIDE 25 mmol/L (21-32); CHLORIDE 104 mmol/L (98-107); CREATININE 1.6 mg/dL (0.6-1.3); GLUCOSE 126 mg/dL (74-106); POTASSIUM 4.2 mmol/L (3.5-5.1); SODIUM SERUM 139 mmol/L (136-145); UREA NITROGEN, BLOOD 26 mg/dL (7-18)
[2021-09-27 12:41] LABS: ALANINE AMINOTRANSFERASE 18 U/L (12-78); ALBUMIN 2.8 g/dL (3.4-5.0); ALKALINE PHOSPHATASE 102 U/L (46-116); ASPARTATE AMINOTRANSFERASE 27 U/L (15-37); BILIRUBIN,DIRECT 0.2 mg/dL (0.0-0.2); BILIRUBIN,TOTAL 0.5 mg/dL (0.2-1.0); TOTAL PROTEIN, SERUM 7.4 g/dL (6.4-8.2)
[2021-09-27] MEDS ORDERED: CEFTRIAXONE 1GM BAG (ER ONLY) 50 ML IV ONE (13:17)
[2021-09-27] MEDS ORDERED: FUROSEMIDE 20 MG/2 ML VIAL ONE ×2 (13:18)
[2021-09-27] MEDS ORDERED: CEFTRIAXONE 1GM BAG (ER ONLY) 1 GM/50 ML PIGGYBACK IV ONE (13:30)
[2021-09-27] MEDS ORDERED: FUROSEMIDE 20 MG/2 ML VIAL IV ONE (13:30)
[2021-09-27] MEDS ORDERED: ACETAMINOPHEN ES 500 MG TABLET PO ONE (13:30)
--- NOTE | 2021-09-27 13:35 | NUR ---
ADDENDUM: Intravenous End Time Documentation: Rocephin 1 gram IVPB: start time: 1305 pm ; end time: 1335 pm IV site: [facility] PIV # 22 Port # 1
--- NOTE | 2021-09-27 13:35 | NUR ---
ROCEPHINE IV STARTED AT 1305 ENDED AT 1335 NO ADVERSE REACTION TO IV ANTIBIOTIC NOTED.
--- NOTE | 2021-09-27 14:13 | NUR ---
[facility] SWAB FOR COVID19 SENT. IN AND OUT CATH. DONE URINE SENT TO LAB
--- NOTE | 2021-09-27 14:27 | NUR ---
UNABLE TO TOLERATE PO, TYLENOL SUPP GIVEN ORDERED
[2021-09-27] MEDS ORDERED: ACETAMINOPHEN 650 MG/SUPP.RECT RC ONE ×2 (14:30→14:36)
[2021-09-27] MEDS ORDERED: ACETAMINOPHEN 120 MG/SUPP.RECT RC ONE (14:36)
[2021-09-27 14:53] LABS: BILIRUBIN,URINE NEGATIVE (NEGATIVE); COLOR,URINE YELLOW (YELLOW); LEUKOCYTE ESTERASE ,URINE NEGATIVE (NEGATIVE); NITRITE, URINE NEGATIVE (NEGATIVE); PH,URINE 5.5 (5.0-8.0); PROTEIN,URINE NEGATIVE (NEGATIVE); UGLUCOSE NEGATIVE (NEGATIVE); UROBILINOGEN,URINE 0.2 EU/dL (0.2)
[2021-09-27 15:12] LABS: BACTERIA,URINE n /HPF (None Seen); MUCUS,URINE Few /LPF (None Seen); RBC,URINE 0-2 /HPF (0-2); SQUAMOUS EPITHELIAL CELL,UR 0-2 /HPF (None Seen); WBC,URINE 0-2 /HPF (0-3)
[2021-09-27 17:00] VITALS: BP 114/71
--- NOTE | 2021-09-27 17:12 | NUR ---
CALL FROM MITCH BAILON,[facility], ACCEPTED BY DR STEWART AT [facility],ROOM 4056-A,CALL REPORT TO [phone], [facility] ETA IS [phone].
--- NOTE | 2021-09-27 17:23 | NUR ---
PATIENT FOR [facility]
== END 2021-09-27 17:23 | disposition short-term general hospital (02) ==
LOC: ER 11:14
DX: J44.1 Chronic obstructive pulmonary disease with (acute) exacerbation (principal); I50.9 Heart failure, unspecified; I11.0 Hypertensive heart disease with heart failure; R91.8 Other nonspecific abnormal finding of lung field; M10.9 Gout, unspecified; I48.91 Unspecified atrial fibrillation; F03.90 Unspecified dementia, unspecified severity, without behavioral disturbance, psychotic disturbance, mood disturbance, and anxiety; D64.9 Anemia, unspecified; E86.0 Dehydration; N28.9 Disorder of kidney and ureter, unspecified; Z86.39 Personal history of other endocrine, nutritional and metabolic disease; Z20.822 Contact with and (suspected) exposure to COVID-19
CPT/HCPCS: 36415; 71045; 80048; 80076; 81001; 83605; 83880; 84145; 84484; 85025; 85730; 87040 ×2; 87086; 87426; 93005; 96365; 96375; 99285; C9803; J0696; J1940; J7040

== ENCOUNTER 2023-06-04 11:40 | Emergency (ER) | payer OTHER ==
[~2023-06-04] VITALS: Ht 182.9 cm; Wt 76.2 kg
[~2023-06-04 11:40] MED LIST changes: -ACAM333T8 PO; +ACET-868 PO; -ACET1OOV6 NEB; +ALBU18HF2 IH; -ALBU2.5V13 NEB; -ASPI-992 PO; -BECL8.7A6 IH; +CICL6.1H2 IH; -CYAN-51 PO; +DABI150C PO; +GABA-532 PO; -HEPA50008 SQ; -HYDR-4384 PO; -IPRA0.2S9 NEB; +LACT1CAP71 PO; -LOSA50TA39 PO; -MAGN400T26 PO; +MULT-1168 PO; -MULT-24 PO; -SENN-261 PO; +TIOT18CA3 IH
[2023-06-04 12:46] LABS: BASOPHILS % (AUTO) 0.5 % (0.0-2.0); EOSINOPHILS # (AUTO) 0.3 K/uL (0.0-0.7); EOSINOPHILS % (AUTO) 3.8 % (0.0-6.0); HEMATOCRIT 31 % (39-51); HEMOGLOBIN 10.2 g/dL (13.5-17.5); LYMPHOCYTES # (AUTO) 1.1 K/uL (0.8-4.8); LYMPHOCYTES % (AUTO) 12.5 % (20.0-44.0); MEAN CORPUSCULAR HEMOGLOBIN 33 PG (26.0-33.0); MEAN CORPUSCULAR HGB CONC 33 g/dl (31.0-36.0); MEAN CORPUSCULAR VOLUME 101 fL (80-96); MONOCYTES # (AUTO) 0.5 K/uL (0.1-1.30); NEUTROPHILS # (AUTO) 6.8 K/uL (1.8-8.9); NEUTROPHILS % (AUTO) 77.2 % (43.0-81.0); PLATELET COUNT (AUTO) 134 K/uL (150-450); RED BLOOD CELL COUNT(AUTO) 3.08 MIL/uL (4.5-6.0); RED CELL DISTRIBUTION WIDTH 14.9 % (11.5-15.0); WHITE BLOOD COUNT (AUTO) 8.8 K/uL (4.3-11.0)
[2023-06-04 13:00] LABS: CALCIUM, SERUM 10.2 mg/dL (8.5-10.1); CARBON DIOXIDE 29 mmol/L (21-32); CHLORIDE 104 mmol/L (98-107); CREATININE 1.3 mg/dL (0.6-1.3); GLUCOSE 98 mg/dL (74-106); POTASSIUM 3.9 mmol/L (3.5-5.1); SODIUM SERUM 137 mmol/L (136-145); UREA NITROGEN, BLOOD 44 mg/dL (7-18)
[2023-06-04] MEDS ORDERED: ONDANSETRON HCL/PF 4 MG/2 ML VIAL IVP ONE (13:00)
[2023-06-04] MEDS ORDERED: IV NS 0.9% 1,000 ML BAG IV ONE (13:00)
[2023-06-04 13:07] LABS: ALANINE AMINOTRANSFERASE 11 U/L (12-78); ALBUMIN 3.1 g/dL (3.4-5.0); ALKALINE PHOSPHATASE 115 U/L (46-116); ASPARTATE AMINOTRANSFERASE 7 U/L (15-37); BILIRUBIN,DIRECT 0.1 mg/dL (0.0-0.2); BILIRUBIN,TOTAL 0.3 mg/dL (0.2-1.0); LIPASE 19 U/L (16-77); TOTAL PROTEIN, SERUM 7.4 g/dL (6.4-8.2)
[2023-06-04] MEDS ORDERED: ONDANSETRON HCL/PF 4 MG/2 ML VIAL ONE (13:07)
[2023-06-04] MEDS ORDERED: MAGNESIUM CITRATE 296 ML BOTTLE PO ONE (14:30)
[2023-06-04] MEDS ORDERED: NA PHOS,M-B/NA PHOS,DI-BA 1 EA ENEMA RC ONE (14:30)
[2023-06-04 15:01] LABS: APPEARANCE,URINE CLEAR (CLEAR); COLOR,URINE YELLOW (YELLOW)
[2023-06-04 15:02] LABS: BILIRUBIN,URINE NEGATIVE (NEGATIVE); BLOOD, URINE NEGATIVE Ery/uL (NEGATIVE); KETONES,URINE NEGATIVE (NEGATIVE); LEUKOCYTE ESTERASE ,URINE NEGATIVE (NEGATIVE); NITRITE, URINE NEGATIVE (NEGATIVE); PH,URINE 5.5 (5.0-8.0); PROTEIN,URINE NEGATIVE (NEGATIVE); UGLUCOSE NEGATIVE (NEGATIVE); UROBILINOGEN,URINE 0.2 EU/dL (0.2)
[2023-06-04] MEDS ORDERED: ACET-2605 PO (15:23)
[2023-06-04] MEDS ORDERED: ZINC50TA69 PO (15:23)
[2023-06-04] MEDS ORDERED: SENN1TAB6 PO (15:23)
[2023-06-04] MEDS ORDERED: ASCO-340 PO (15:23)
[2023-06-04] MEDS ORDERED: COLC0.6C3 PO (15:23)
[2023-06-04] MEDS ORDERED: FERR325T23 PO (15:23)
[2023-06-04] MEDS ORDERED: FURO-145 PO (15:23)
[2023-06-04] MEDS ORDERED: PANT40TA2 PO (15:23)
[2023-06-04] MEDS ORDERED: PANTOPRAZOLE 40 MG VIAL IV ONE (15:30)
[2023-06-04] MEDS ORDERED: PANTOPRAZOLE 40 MG VIAL ONE (15:38)
[2023-06-04] MEDS ORDERED: PANTOPRAZOLE 80 MG in IV NS 0.9% 500 ML IV PRN (16:00)
[2023-06-04] MEDS ORDERED: PROTHROMBIN COMPLEX CONCENTR 500 UNIT VIAL IV ONE (16:00)
[2023-06-04 16:32] LABS: BASOPHILS % (AUTO) 0.4 % (0.0-2.0); EOSINOPHILS # (AUTO) 0.5 K/uL (0.0-0.7); EOSINOPHILS % (AUTO) 5.5 % (0.0-6.0); HEMATOCRIT 31 % (39-51); HEMOGLOBIN 9.7 g/dL (13.5-17.5); LYMPHOCYTES # (AUTO) 1.3 K/uL (0.8-4.8); LYMPHOCYTES % (AUTO) 15.5 % (20.0-44.0); MEAN CORPUSCULAR HEMOGLOBIN 33 PG (26.0-33.0); MEAN CORPUSCULAR HGB CONC 32 g/dl (31.0-36.0); MEAN CORPUSCULAR VOLUME 104 fL (80-96); MONOCYTES # (AUTO) 0.5 K/uL (0.1-1.30); NEUTROPHILS # (AUTO) 5.9 K/uL (1.8-8.9); NEUTROPHILS % (AUTO) 72.6 % (43.0-81.0); PLATELET COUNT (AUTO) 120 K/uL (150-450); RED BLOOD CELL COUNT(AUTO) 2.95 MIL/uL (4.5-6.0); RED CELL DISTRIBUTION WIDTH 15.1 % (11.5-15.0); WHITE BLOOD COUNT (AUTO) 8.2 K/uL (4.3-11.0)
[2023-06-04 16:58] LABS: INR 2.09 (0.91-1.10); PROTHROMBIN TIME 21.1 SECS (9.2-11.1)
[2023-06-04 17:15] VITALS: BP 108/76; TEMP 97.6; O2SAT 97
[2023-06-04] MEDS ORDERED: ACETAMINOPHEN ES 500 MG TABLET ONE (17:19)
[2023-06-04 17:22] LABS: PARTIAL THROMBOPLASTIN TIME 75.9 SEC (24.3-34.3)
[2023-06-04] MEDS ORDERED: ACETAMINOPHEN ES 500 MG TABLET PO ONE (17:30)
[2023-06-04] MEDS ORDERED: MORPHINE SULFATE INJ 2 MG/ML DISP.SYRIN IV ONE (17:30)
[2023-06-04 23:06] LABS: EOSINOPHILS % (MANUAL) 3 % (0-4); LYMPHOCYTES % (MANUAL) 19 % (16-48); MONOCYTES % (MANUAL) 2 % (0-11.0); NEUTROPHILS % (MANUAL) 76 (42-76); PLATELET ESTIMATE DECREASED
== END 2023-06-04 17:54 | disposition hospice, inpatient (51) ==
LOC: ER 11:50
DX: K56.41 Fecal impaction (principal); K92.2 Gastrointestinal hemorrhage, unspecified; I11.0 Hypertensive heart disease with heart failure; I50.9 Heart failure, unspecified; I48.91 Unspecified atrial fibrillation; J44.9 Chronic obstructive pulmonary disease, unspecified; Z98.890 Other specified postprocedural states; Z79.899 Other long term (current) drug therapy
CPT/HCPCS: 99291; 74176; 96365; 96361; 96375; 93005; 71045; 96376; 85025 ×2; 80048; 83690; 80076; 81003; 36415; 84484; 85730; 86850; 85007; J7168; J2405; J7030; J7040; C9113 ×2

== ENCOUNTER 2024-06-10 22:18 | Emergency (ER) | payer OTHER ==
[~2024-06-10] VITALS: Ht 170.2 cm; Wt 69.9 kg
[~2024-06-10 22:18] MED LIST changes: +ACET-2605 PO; -ACET-868 PO; -ALLO300T2 PO; +ASCO-340 PO; +COLC0.6C3 PO; +FERR325T23 PO; -FOLI1TAB16 PO; +FURO-145 PO; -MELA3TAB41 PO; -MULT-1168 PO; +PANT40TA2 PO; +SENN1TAB6 PO; -THIA100T13 PO; +ZINC50TA69 PO
[2024-06-10 23:02] LABS: BASOPHILS % (AUTO) 0.3 % (0.0-2.0); EOSINOPHILS # (AUTO) 0.2 K/uL (0.0-0.7); EOSINOPHILS % (AUTO) 1.3 % (0.0-6.0); HEMATOCRIT 30 % (39-51); HEMOGLOBIN 9.8 g/dL (13.5-17.5); LYMPHOCYTES # (AUTO) 0.7 K/uL (0.8-4.8); LYMPHOCYTES % (AUTO) 6.1 % (20.0-44.0); MEAN CORPUSCULAR HEMOGLOBIN 31 PG (26.0-33.0); MEAN CORPUSCULAR HGB CONC 32 g/dl (31.0-36.0); MEAN CORPUSCULAR VOLUME 97 fL (80-96); MONOCYTES # (AUTO) 0.8 K/uL (0.1-1.30); MONOCYTES % (AUTO) 7.2 % (2.0-12.0); NEUTROPHILS # (AUTO) 9.6 K/uL (1.8-8.9); NEUTROPHILS % (AUTO) 85.1 % (43.0-81.0); PLATELET COUNT (AUTO) 159 K/uL (150-450); RED BLOOD CELL COUNT(AUTO) 3.12 MIL/uL (4.5-6.0); RED CELL DISTRIBUTION WIDTH 15.5 % (11.5-15.0); WHITE BLOOD COUNT (AUTO) 11.3 K/uL (4.3-11.0)
[2024-06-10 23:15] LABS: LACTIC ACID 0.7 mmol/L (0.4-2.0)
[2024-06-10] MEDS ORDERED: CLON1TAB12 PO (23:17)
[2024-06-10] MEDS ORDERED: METO25TA4 PO (23:18)
[2024-06-10] MEDS ORDERED: MIRT45TA79 PO (23:18)
[2024-06-10 23:19] LABS: CALCIUM, SERUM 9.7 mg/dL (8.5-10.1); CARBON DIOXIDE 30 mmol/L (21-32); CHLORIDE 107 mmol/L (98-107); CREATININE 1.3 mg/dL (0.6-1.3); GLUCOSE 123 mg/dL (74-106); POTASSIUM 4.1 mmol/L (3.5-5.1); SODIUM SERUM 143 mmol/L (136-145); UREA NITROGEN, BLOOD 27 mg/dL (7-18)
[2024-06-10 23:19] LABS: APPEARANCE,URINE CLEAR (CLEAR); BILIRUBIN,URINE NEGATIVE (NEGATIVE); BLOOD, URINE NEGATIVE Ery/uL (NEGATIVE); COLOR,URINE YELLOW (YELLOW); KETONES,URINE NEGATIVE (NEGATIVE); LEUKOCYTE ESTERASE ,URINE NEGATIVE (NEGATIVE); NITRITE, URINE NEGATIVE (NEGATIVE); PROTEIN,URINE NEGATIVE (NEGATIVE); UGLUCOSE NEGATIVE (NEGATIVE); UROBILINOGEN,URINE 0.2 EU/dL (0.2)
[2024-06-10] MEDS ORDERED: SIMV-49 PO (23:19)
[2024-06-10] MEDS ORDERED: ASPI-1169 PO (23:19)
[2024-06-10 23:24] LABS: ALANINE AMINOTRANSFERASE 13 U/L (12-78); ALBUMIN 2.6 g/dL (3.4-5.0); ALKALINE PHOSPHATASE 171 U/L (46-116); ASPARTATE AMINOTRANSFERASE 16 U/L (15-37); BILIRUBIN,TOTAL 0.4 mg/dL (0.2-1.0); NT-PRO BNP 2222 pg/mL (0-125); TOTAL PROTEIN, SERUM 7.1 g/dL (6.4-8.2)
[2024-06-11] MEDS ORDERED: AZIT250T PO (02:28)
[2024-06-11 04:43] VITALS: BP 113/69; TEMP 99.6; O2SAT 95
== END 2024-06-11 04:43 | disposition home or self-care (01) ==
LOC: ER 22:19
DX: J40 Bronchitis, not specified as acute or chronic (principal); I11.0 Hypertensive heart disease with heart failure; I50.9 Heart failure, unspecified; I48.91 Unspecified atrial fibrillation; J44.9 Chronic obstructive pulmonary disease, unspecified; M10.9 Gout, unspecified; Z79.899 Other long term (current) drug therapy; Z79.02 Long term (current) use of antithrombotics/antiplatelets; Z79.51 Long term (current) use of inhaled steroids; Z79.82 Long term (current) use of aspirin; Z20.822 Contact with and (suspected) exposure to COVID-19
CPT/HCPCS: 36415; 71045-TC; 80053-TC; 83605-TC; 83880; 84484-TC; 85025-TC; 87040-TC

== ENCOUNTER 2025-01-11 11:25 | Emergency (ER) | payer OTHER ==
[~2025-01-11] VITALS: Ht 172.7 cm; Wt 80.9 kg
[~2025-01-11 11:25] MED LIST changes: +AZIT250T PO
[2025-01-11 11:35] VITALS: TEMP 98
[2025-01-11 12:01] LABS: PLATELET COUNT (AUTO) 145 K/uL (150-450); RED BLOOD CELL COUNT(AUTO) 2.88 MIL/uL (4.5-6.0); RED CELL DISTRIBUTION WIDTH 17.0 % (11.5-15.0); WHITE BLOOD COUNT (AUTO) 7.3 K/uL (4.3-11.0)
[2025-01-11] MEDS: IV NS 0.9% 1,000 ML BAG IV ONE (12:14)
[2025-01-11 12:16] LABS: CALCIUM, SERUM 11.5 mg/dL (8.5-10.1); CREATININE 1.3 mg/dL (0.6-1.3); SODIUM SERUM 138 mmol/L (136-145); UREA NITROGEN, BLOOD 30 mg/dL (7-18)
[2025-01-11 12:22] LABS: ASPARTATE AMINOTRANSFERASE 10 U/L (15-37); TOTAL PROTEIN, SERUM 7.3 g/dL (6.4-8.2)
[2025-01-11 12:24] LABS: LACTIC ACID 1.5 mmol/L (0.4-2.0)
[2025-01-11 12:34] LABS: INR 5.33 (0.91-1.10)
[2025-01-11 12:47] LABS: NT-PRO BNP 1026.0 pg/mL (0-125)
[2025-01-11 14:04] LABS: APPEARANCE,URINE CLEAR (CLEAR); BLOOD, URINE NEGATIVE Ery/uL (NEGATIVE); LEUKOCYTE ESTERASE ,URINE NEGATIVE (NEGATIVE); NITRITE, URINE NEGATIVE (NEGATIVE); UGLUCOSE NEGATIVE (NEGATIVE)
[2025-01-11] MEDS ORDERED: MIRALAX PO (14:19)
[2025-01-11] MEDS ORDERED: ATOR20TA PO (14:19)
[2025-01-11] MEDS ORDERED: LOPE2CAP40 PO (14:19)
[2025-01-11] MEDS ORDERED: ALLO100T PO (14:19)
[2025-01-11 15:49] LABS: ALCOHOL, BLOOD < 3 mg/dL (0-10)
[2025-01-11 18:28] VITALS: BP 125/76; O2SAT 99
[2025-01-11 18:58] LABS: AMPHETAMINE, URINE NEGATIVE (NEGATIVE); BARBITURATE, URINE NEGATIVE (NEGATIVE); BENZODIAZEPINE, URINE NEGATIVE (NEGATIVE); COCCAINE, URINE NEGATIVE (NEGATIVE); OPIATE, URINE NEGATIVE (NEGATIVE)
[2025-01-11 19:03] LABS: CANNABINOID, URINE POSITIVE (NEGATIVE)
== END 2025-01-11 19:00 | disposition short-term general hospital (02) ==
LOC: ER 11:27
DX: R41.82 Altered mental status, unspecified (principal); R00.1 Bradycardia, unspecified; I11.0 Hypertensive heart disease with heart failure; I50.9 Heart failure, unspecified; I48.91 Unspecified atrial fibrillation; J44.9 Chronic obstructive pulmonary disease, unspecified; M10.9 Gout, unspecified; Z79.01 Long term (current) use of anticoagulants; Z79.02 Long term (current) use of antithrombotics/antiplatelets; Z79.51 Long term (current) use of inhaled steroids; Z79.899 Other long term (current) drug therapy
CPT/HCPCS: 36415; 70450-TC; 71045-TC; 80048-TC; 80076-TC; 83605-TC; 83735-TC; 83880; 84443-TC; 84484-TC; 85025-TC; 85730-TC; 87040-TC; 87081-TC; G0480

== ENCOUNTER 2025-05-17 03:36 | Emergency (ER) | payer OTHER ==
[~2025-05-17] VITALS: Ht 172.7 cm; Wt 77.1 kg
[~2025-05-17 03:36] MED LIST changes: +ALLO100T PO; -ASCO-340 PO; -ATOR10TA PO; +ATOR20TA PO; -AZIT250T PO; -DOCU-141 PO; -LACT1CAP71 PO; +LOPE2CAP40 PO; -METO25TA20 PO; +MIRALAX PO; -PANT40TA2 PO; -SENN1TAB6 PO; -ZINC50TA69 PO
[2025-05-17] MEDS ORDERED: GELATIN SPONGE,ABSORBABLE 1 SPONGE SPONGE TP ONE ×2 (03:49→04:02)
[2025-05-17] MEDS: GELATIN SPONGE,ABSORBABLE 1 SPONGE SPONGE TP ONE (03:51)
[2025-05-17 04:09] LABS: PLATELET COUNT (AUTO) 133 K/uL (150-450); RED BLOOD CELL COUNT(AUTO) 3.26 MIL/uL (4.5-6.0); RED CELL DISTRIBUTION WIDTH 17.0 % (11.5-15.0); WHITE BLOOD COUNT (AUTO) 8.8 K/uL (4.3-11.0)
[2025-05-17 04:15] LABS: CALCIUM, SERUM 9.7 mg/dL (8.5-10.1); CREATININE 1.0 mg/dL (0.6-1.3); SODIUM SERUM 144.0 mmol/L (136-145); UREA NITROGEN, BLOOD 25.0 mg/dL (7-18)
[2025-05-17 07:06] VITALS: BP 130/75; TEMP 98.1; O2SAT 97
== END 2025-05-17 07:07 ==
LOC: ER 03:38
DX: S01.412A Laceration without foreign body of left cheek and temporomandibular area, initial encounter (principal); L76.22 Postprocedural hemorrhage of skin and subcutaneous tissue following other procedure; I11.9 Hypertensive heart disease without heart failure; M10.9 Gout, unspecified; Z79.01 Long term (current) use of anticoagulants; Z79.51 Long term (current) use of inhaled steroids; Z79.899 Other long term (current) drug therapy; X58.XXXA Exposure to other specified factors, initial encounter; Y93.89 Activity, other specified; Y92.89 Other specified places as the place of occurrence of the external cause; Y99.8 Other external cause status
CPT/HCPCS: 36415; 80048-TC; 85025-TC

== ENCOUNTER 2025-05-19 11:20 | Emergency (ER) | payer OTHER ==
[~2025-05-19] VITALS: Ht 185.4 cm; Wt 65.8 kg
[2025-05-19 11:27] VITALS: TEMP 97.4
[2025-05-19 12:16] LABS: PLATELET COUNT (AUTO) 140 K/uL (150-450); RED BLOOD CELL COUNT(AUTO) 3.22 MIL/uL (4.5-6.0); RED CELL DISTRIBUTION WIDTH 17.1 % (11.5-15.0); WHITE BLOOD COUNT (AUTO) 9.2 K/uL (4.3-11.0)
[2025-05-19 12:37] LABS: CALCIUM, SERUM 9.6 mg/dL (8.5-10.1); CREATININE 1.0 mg/dL (0.6-1.3); SODIUM SERUM 141.0 mmol/L (136-145); UREA NITROGEN, BLOOD 27.0 mg/dL (7-18)
[2025-05-19 16:36] VITALS: BP 142/77; O2SAT 99
== END 2025-05-19 15:09 ==
LOC: ER 11:30
DX: M86.672 Other chronic osteomyelitis, left ankle and foot (principal); M10.9 Gout, unspecified; I10 Essential (primary) hypertension; Z79.01 Long term (current) use of anticoagulants; Z79.51 Long term (current) use of inhaled steroids; Z79.899 Other long term (current) drug therapy
CPT/HCPCS: 36415; 73630-TC; 80048-TC; 85025-TC; 85652-TC; 86140-TC